=== PATIENT | male | born 1980 | race Two or more races ===

== ENCOUNTER 2025-07-30 14:05 | Emergency (ER) | payer MEDICAID ==
[~2025-07-30] VITALS: Ht 180.3 cm; Wt 67.2 kg
--- NOTE | 2025-07-30 14:19 | Physician Documentation ---
History of Present Illness ~ Chief Complaint: Groin Pain Stated Complaint: GROIN PAIN Time Seen by MD: 19:19 HPI MSE: Is a 44-year-old male that presents to the emergency department for evaluation of left testicular pain intermittently x1 year. Patient denies recent illness injury overly strenuous activity. Denies any swelling or redness of the testing but does report tenderness to the touch. Medication Reconciliation Allergies: Coded Allergies: Penicillins (Verified Allergy, Unknown, 07/30/25) Review of Systems ROS As stated above in the HPI, otherwise all systems are reviewed and negative. Physical Exam Vital Signs: Temperature: 97.0, Source: Temporal, Heart Rate: 87, Respiratory Rate: 16, BP: 110/65, Pulse Oximetry: 96, Weight: 67.200 Oxygen Flow Rate: 0 Physical Exam VITALS: Reviewed and as above. GENERAL: Alert, no apparent distress. HEENT: Normocephalic, atraumatic, PERRL, EOMI, dry mucosa, no erythema RESPIRATORY: Lungs clear, normal breath sounds, no respiratory distress. CHEST: No accessory muscle use, no retractions CV: Regular rate, rhythm, no edema, no murmur, No: JVD GI: Soft, non-tender, bowels sounds present, no rebound, guarding, or rigidity, pain to the left testicle with palpation, no swelling or erythema noted to left testicle. BACK: No CVA tenderness, or swelling MUSCULOSKELETAL No deformities, no edema SKIN: Warm and dry, no rash NEURO: Oriented x4, No motor or sensory deficit PSYCH: Normal mood and affect, no agitation Progress Results/Orders Results/Orders Orders - KRAIG CEDEÑO [employer] Us Testic/W/Duplex (07/30/25 15:28) Completed Orders - KRAIG CEDEÑO [employer] Us Testic/W/Duplex (07/30/25 15:28) Vital Signs 07/30/25 07/30/25 07/30/25 14:12 14:22 18:02 Temp 97.0 Pulse 87 67 Resp 16 16 B/P (MAP) 110/65 113/79 (90) Pulse Ox 96 98 O2 Flow Rate 0 Medical Decision Making Findings The patient is suffering from testicular pain, but based on the history, exam, and work up, I do not suspect that the patient has testicular torsion, abscess, severe cellulitis, Fourniers gangrene, orchitis, epididymitis, inguinal hernia or other emergent cause. Patient will follow up with his primary care provider. Patient return to the emergency department with any worsening of his current symptoms or any additional concerning symptoms that we discussed here today significant increase in pain to the testicle swelling or redness to the testicle fever chills numbness tingling or any other concerning symptoms. Urinary Diff Dx:Considerations: Include: AAA, Aortic dissection, Appendicitis, Appendicitis train, Bowel obstruction, Bladder outlet obstruc., Cholelithiasis, Choleangitis, Cholecystitis, DJD, Epididymitis, Hepatitis, HNP, Impaction, Musculoskeletal pain, Pancreatitis, Postoperative Comp., Prostatitis, Pyelonephritis, Renal failure, Renal infarction, Strain, Urolithiasis, Urinary O bstruction, Urethritis, Urinary retention, UTI, Other Genital Diff Dx:Considerations: Include: Abscess, Balanitis, Balanoposthitis, Cellulitis, Epididymitis, Entrapment injury, Candice's gangrene, Foreign body, Facture penis, Hydrocele, Inguinal hernia, Post-op Complication, Paraphimosis, Prostatitis, Priapism, Syphilis, Testicular torsion, Torsion-epididymis, Torsion-appendiceal, Urinary retention, Urethritis, Urethritis-chlamydial, Urethritis-gonococcal, UTI, Other Departure Disposition: 01 HOME / SELF CARE / HOMELESS Impression: Primary Impression: Left testicular pain Condition: Stable Additional Instructions: The patient is suffering from testicular pain, but based on the history, exam, and work up, I do not suspect that the patient has testicular torsion, abscess, severe cellulitis, Fourniers gangrene, orchitis, epididymitis, inguinal hernia or other emergent cause. Patient will follow up with his primary care provider. Patient return to the emergency department with any worsening of his current symptoms or any additional concerning symptoms that we discussed here today significant increase in pain to the testicle swelling or redness to the testicle fever chills numbness tingling or any other concerning symptoms. Referrals: NO PRIMARY CARE PROVIDER (PCP) Education Educated: Patient Educated regarding: diagnosis, treatment, need for follow up Signature Scribe Signature: A Attestation: Scribed for Emergency,Department by CHARU Alvarez . 07/30/25 19:27 KRAIG CEDEÑO Jul 30, 2025 14:19
--- NOTE | 2025-07-30 17:15 | RADIOLOGY REPORT ---
EXAM: US US TESTIC/W/DUPLEX Clinical History: left testicular pain Comparison: None TECHNIQUE: Grayscale color-flow and focus duplex Doppler also examination of the contents of the scrotum was performed. Findings: Right testis measures 4.3 x 2.2 x 2.9 cm. Right epididymal head measures 0.9 cm. No right hydrocele. There is dilatation of the right pampiniform venous plexus. Left testis measures 3.9 x 2.1 x 2.9 cm. Left epididymal head measures 0.6 cm. Small epididymal cysts. No left hydrocele. There is dilatation of the left pampiniform venous plexus. Heterogeneous echotexture noted in both testes without evidence of intratesticular masses. Bilateral microlithiasis. Arterial and venous flow is documented to both testes. Impression: 1. No evidence of testicular torsion or intratesticular masses. 2. No hydrocele or varicocele bilaterally. 3. Bilateral microlithiasis.
[2025-07-30 18:02] VITALS: BP 113/79; PULSE 67; RESP 16; O2SAT 98
[2025-07-30 19:48] VITALS: TEMP 97
== END 2025-07-30 19:49 | disposition home or self-care (01) ==
LOC: ER 14:06
DX: N50.812 Left testicular pain (principal); Z88.0 Allergy status to penicillin
CPT/HCPCS: 76870; 93976; 99284